=== PATIENT | male | born 1985 ===

== ENCOUNTER 2022-04-13 22:34 | Emergency (ER) | payer BC ==
[2022-04-13] MEDS ORDERED: Oxymetazoline 0.05% Nasal Spray 30 ML Bottle NAS ONE (23:42)
[2022-04-13] MEDS ORDERED: Acetaminophen 325 MG Tab PO ONE (23:42)
[2022-04-13] MEDS ORDERED: Lidocaine/Epineph/Tetracaine 3 ML Syringe TOP ONE (23:42)
[2022-04-13] MEDS ORDERED: Diphtheria,Pertussis(Acell),Tetanus Vaccine 0.5 ML Syringe IM ONE (23:42)
[2022-04-13] MEDS ORDERED: Octyl 2-Cyanoacrylate 1 g/1 mL 1 APPLIC PEN TOP ONE (23:46)
== END 2022-04-14 01:10 | disposition home or self-care (01) ==
LOC: MW.ED 22:34
DX: S02.2XXA Fracture of nasal bones, initial encounter for closed fracture (principal); Z91.013 Allergy to seafood; Z23 Encounter for immunization; W22.8XXA Striking against or struck by other objects, initial encounter; Y92.89 Other specified places as the place of occurrence of the external cause; Y99.0 Civilian activity done for income or pay
CPT/HCPCS: 12011; 70450; 70486; 90471; 90715; 99283; A9270